=== PATIENT | male | born 1960 | race Caucasian/White ===

== ENCOUNTER → 2018-10-11 | Outpatient (CLI) | payer OTHER | LOC: EMCIMAGING 08:43 | PROVIDERS: ATTEND Nurse Practitioner | DX: R10.11 Right upper quadrant pain (principal); R10.30 Lower abdominal pain, unspecified; R53.83 Other fatigue; R63.4 Abnormal weight loss; E78.2 Mixed hyperlipidemia | CPT/HCPCS: 76705-PN ==

== ENCOUNTER → 2018-11-17 | Outpatient (CLI) | payer OTHER | LOC: EMCIMAGING 11:00 ==